=== PATIENT | male | born 1960 | race Caucasian/White ===

== ENCOUNTER 2018-01-06 06:33 | Outpatient (CLI) | payer OTHER ==
[2018-01-06] MEDS ORDERED: LIDOCAINE 2% 20 ML VIAL. (07:11)
[2018-01-06] MEDS ORDERED: IODIXANOL 320 MG/ML 100 ML VIAL. ×2 (07:12→08:39)
[2018-01-06 07:13] LABS: HEMATOCRIT 45.4 % (39.0-53.0); HEMOGLOBIN 15.6 g/dL (13.0-17.5); MEAN CORPUSCULAR HEMOGLOBIN 29 pg (25-35); MEAN CORPUSCULAR HGB CONC 34 g/dL (31-37); MEAN CORPUSCULAR VOLUME 85 fL (79-100); PLATELET COUNT 209 x10^3/uL (140-400); RED BLOOD COUNT 5.32 x10^6/uL (4.30-5.70); RED CELL DISTRIBUTION WIDTH 13.2 % (11.5-14.5); WHITE BLOOD COUNT 7.5 x10^3/uL (4.0-11.0)
[2018-01-06 07:22] LABS: ANION GAP 8 (6-14); BLOOD UREA NITROGEN 12 mg/dL (8-26); CALCIUM 8.9 mg/dL (8.5-10.1); CARBON DIOXIDE 28 mmol/L (21-32); CHLORIDE 105 mmol/L (98-107); GFR 77.3; GLUCOSE 190 mg/dL (70-99); POTASSIUM 4.2 mmol/L (3.5-5.1); SODIUM 141 mmol/L (136-145)
[2018-01-06 07:28] LABS: INR 0.9 (0.8-1.1); PARTIAL THROMBOPLASTIN TIME 27 SEC (24-38); PROTHROMBIN TIME PATIENT 12.1 SEC (11.7-14.0)
[2018-01-06] MEDS ORDERED: CONTRAST GIVEN MC (07:45)
[2018-01-06] MEDS ORDERED: NITROGLYCERIN OINT 1 GM PACKET. (08:20)
[2018-01-06] MEDS ORDERED: HEPARIN for IV BOLUS 10,000 UNIT/10 ML VIAL. (08:30)
[2018-01-06] MEDS: HEPARIN for IV BOLUS 10,000 UNIT/10 ML VIAL. IV (09:04)
[2018-01-06] MEDS: LIDOCAINE 2% 20 ML VIAL. IJ (09:05)
[2018-01-06] MEDS: IODIXANOL 320 MG/ML 100 ML VIAL. IART (09:05)
[2018-01-06] MEDS: MIDAZOLAM HCL/PF 5 MG/5 ML VIAL. IV (09:06)
[2018-01-06] MEDS: NITROGLYCERIN OINT 1 GM PACKET. TP (09:06)
[2018-01-06] MEDS: fentaNYL PF VIAL 100 MCG/2 ML VIAL IV (09:07)
[2018-01-06] MEDS ORDERED: 0.9 % SODIUM CHLORIDE 10 ML DISP.SYRIN. IV (09:30)
[2018-01-06] MEDS ORDERED: NITROGLYCERIN SUBLINGUAL 0.4 MG BOTTLE OF 25. SL (09:30)
[2018-01-06] MEDS ORDERED: IV NORMAL SALINE 1000ML BAG 1,000 ML IV (10:00)
== END 2018-01-06 12:45 ==
LOC: CCL 06:33
DX: I25.10 Atherosclerotic heart disease of native coronary artery without angina pectoris (principal); I10 Essential (primary) hypertension; E78.5 Hyperlipidemia, unspecified; E11.9 Type 2 diabetes mellitus without complications
CPT/HCPCS: 36415; 80048; 85027; 85610; 85730; 93458; 93571; 93572; 99152; 99153; C1769; C1771; C1887; C1892; G0269; J1644; J2250; J3010